=== PATIENT | female | born 1960 | race Caucasian/White ===

== ENCOUNTER → 2018-05-05 | Outpatient (CLI) | payer BC, OTHER ==
[~2018-05-05] MED LIST: CALCIUM 600 +1 EAC1 PO; MOBIC15 MG PO; OMEGA-31000 M1 PO; PROBIOTIC1 EACH PO; ULTRAM 50MG TAB50 MG PO; [UNRECOGNIZED DRUG - OTHER]
== END ==
LOC: RAD 10:34
DX: S92.511A Displaced fracture of proximal phalanx of right lesser toe(s), initial encounter for closed fracture (principal); X58.XXXA Exposure to other specified factors, initial encounter; Y93.89 Activity, other specified; Y92.89 Other specified places as the place of occurrence of the external cause; Y99.8 Other external cause status

== ENCOUNTER → 2018-07-30 | Outpatient (CLI) | payer BC, OTHER ==
[~2018-07-30] VITALS: Ht 160 cm; Wt 45.4 kg
[~2018-07-30] MED LIST changes: +IBUPROFEN 600600 M1 PO; +MEDROL DOSPAK21 TA1 PO; +VALACYCLOVIR500 MG PO
--- NOTE | ~2018-07-30 | HPC ---
[facility] [address] [place] [address] PAIN MANAGEMENT CONSULTATION Name: BRITT WALLIS Room #: REG [facility].#: [id number] Admission: 07/30/18 Attend Phys: Rc Ellington MD Discharge: Date of : 62 Report #: [id number] THIS REPORT FOR: //name// CC: Bk Ellington DATE OF SERVICE: 07/30/2018 CHIEF COMPLAINT: Low back pain with radiation into the left hip and thigh. HISTORY OF PRESENT ILLNESS: The patient is a edilson 57-year-old who is here today at the request of Dr. Garcia. She has pain in the low back with radicular symptoms radiating into the left leg. She was quite adamant today at Dr. Garcia's office that she would like to be seen and we arranged for her to be seen for an epidural injection. She had previously been treated in 2011 for similar pain after a prolonged episode of pain and radiculopathy. She was treated conservatively on that occasion up to 6 weeks before the epidural was performed and she responded beautifully with near complete resolution of the pain and tell her most recent episode. Today, she scores her pain between a 7 and 9.5 on a 10-point scale at periodic rhythming, tender, cramping, aching, shooting, burning sensation. Her pain drawing demonstrates pain radiating in the L3-L4 distribution and pain in the buttock. In addition, she has spasmodic pain along the left side of her lumbar spine. This was quite severe on Friday and is improved somewhat with a Dosepak. CURRENT MEDICATIONS: Day 2 of Medrol Dosepak and probiotic daily. ALLERGIES: BACTRIM, SULFA DRUGS AND COMPAZINE. PAST MEDICAL HISTORY: Excellent health. She had a cholecystectomy in 2002 and she has delivered 2 children vaginally, 1 with an epidural and another one without. She did have the episode of back pain, treated conservatively with epidural injection showing good resolution. SOCIAL HISTORY: She is . 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 She has a 24 and 20-year-old daughter. She denies use of tobacco, drinks alcohol socially twice a week. REVIEW OF SYSTEMS: Completed by the patient is essentially negative. She did describe temporary balls palsy in June of 2018 after seasonal infection, but this has resolved. PHYSICAL EXAMINATION: She is a pleasant 57-year-old female who looks younger than her stated age. She moves easily from a sitting to standing position, [place] [address] PAIN MANAGEMENT CONSULTATION Name: BRITT WALLIS Room #: REG [facility]#: [id number] Admission: 07/30/18 Attend Phys: Rc Ellington MD Discharge: Date of : 62 Report #: [id number] although she does not straight immediately and takes a little bit before she walked 2 steps, before she can sit, stand upright. Her gait is normal. Her blood pressure is 143/81, heart rate 75, respirations 14, O2 sat is 100%. She is 5 feet 3 inches, 100 pounds, BMI of 17.7. Examination of the spine reveals slight scoliotic change, very minimal noted as she bends forward. There is a compensatory rotation higher. She has tenderness along the left paravertebral lumbosacral region. In the sitting position, straight leg raising is performed bilaterally without significant radicular symptoms at this time. Deep tendon reflexes are 2+ in knees and ankles. Sensation is judged to be normal. Strength is also normal in the lower extremities. X-RAYS: None are available and I do not think we necessarily need an MRI at this point in time. IMPRESSION: Low back pain with radiculopathy involving the left L4-L5 distribution. RECOMMENDATIONS: Conservative management. Would consider continuation of the Medrol Dosepak and remaining active with good range of motion exercises and walking program. I stressed that I felt that she would improve from this episode with this conservative therapy. She was quite concerned that she would have to put up with the pain for another 6 weeks as she did previously and was anxious about this. She also reported that she had fear that if she did not do something that she would cause damage to her spine or to her nerves. I reassured that this is very unlikely to occur and that the most likely thing to happen would be that she would recover. After much discussion, I have agreed to provide her with an epidural injection today. She had arranged to have this done today. Potential risks and benefits have been discussed at some length. She was taken to fluoroscopic suite after all questions were answered. PROCEDURE: Epidural steroid injection under fluoroscopic guidance, left paramedian L4-L5. Skin was prepped with ChloraPrep. Skin anesthetized over the L4-L5 interspace. A 20-gauge Tuohy epidural needle advanced in the epidural space with loss of resistance technique. There was no blood or CSF aspirated. A 1 mL of Omnipaque was injected. Good spread of dye observed in the epidural space followed by 3 mL of 1% lidocaine mixed with 80 mg of triamcinolone. She tolerated the procedure well. She was observed for 45 minutes and discharged. Followup visit planned in the pain clinic on an as needed basis. I do not intend a series of injections. [address] [address] PAIN MANAGEMENT CONSULTATION Name: BRITT WALLIS Room #: REG [facility]#: [id number] Admission: 07/30/18 Attend Phys: Rc Ellington MD Discharge: Date of : 62 Report #: [id number] The importance of an ongoing exercise program was stressed once again at discharge. By: [id number] Rc Ellington MD /nt
[2018-07-30 13:36] VITALS: BP 143/81
--- NOTE | 2018-07-30 13:46 | NUR ---
Pain Clinic Assessment: 1. History of Osteoarthritis: Not Applicable History of Rheumatoid Arthritis: Not Applicable 2. Height: 5 ft. 3 in. 160.0 cm. Weight: 100.0 lb. oz. 45.360 kg. Patient's BMI: 17.7 3. Vital Signs: BP: 143/81 Pulse: 75 Resp: 14 Temp: 02 Sat: 98 ECG Mon: 4. Pain Intensity: 7 5. Fall Risk: Dizziness: N Needs help standing or walking: N Fallen in the last 3 months: N Fall risk comments: 6. Patient on Blood Thinner: None 7. History of Hypertension: N 8. Opioid Therapy greater than 6 weeks: N Opiate Contract Signed: 9. Risk Assessment Tool Provided: 0-low 10. Functional Assessment Tool: 11. Recreational Drug Use: Never Drug Type: Tobacco Use: Never Smoker Tobacco Type: Amount or Packs/day: How Many Years: Alcohol Use: Yes Frequency: Weekly Quant: 2
== END | disposition home or self-care (01) ==
LOC: PAIN 13:13
DX: M54.16 Radiculopathy, lumbar region (principal); Z79.899 Other long term (current) drug therapy; Z88.2 Allergy status to sulfonamides; Z88.8 Allergy status to other drugs, medicaments and biological substances; Z90.49 Acquired absence of other specified parts of digestive tract; Z98.890 Other specified postprocedural states

== ENCOUNTER → 2020-03-03 | Outpatient (CLI) | payer BC, OTHER | LOC: LAB 10:16 | PROVIDERS: ATTEND Family Medicine | DX: Z20.828 Contact with and (suspected) exposure to other viral communicable diseases (principal) ==

== ENCOUNTER → 2020-11-03 | Outpatient (CLI) | payer BC, OTHER | LOC: SJCVCIMAG 07:53 | PROVIDERS: ATTEND Internal Medicine | DX: R94.31 Abnormal electrocardiogram [ECG] [EKG] (principal); R07.89 Other chest pain; I11.9 Hypertensive heart disease without heart failure; R00.0 Tachycardia, unspecified; E78.5 Hyperlipidemia, unspecified; Z79.899 Other long term (current) drug therapy; Z88.2 Allergy status to sulfonamides; Z88.8 Allergy status to other drugs, medicaments and biological substances ==